=== PATIENT | female | born 1995 | race Caucasian/White ===

== ENCOUNTER 2023-11-26 05:42 | Emergency (ER) | payer BC, SELFPAY ==
[2023-11-26 06:31] VITALS: BP 109/75
[2023-11-26 06:42] LABS: % Basophils 0.8 % (0-2); % Eosinophils 2.9 % (0-6); % Immature Granulocytes 0.4 % (0-0.5); % Lymphocytes 20.6 % (20.5-51.1); % Monocytes 5.1 % (1.7-9.3); % Neutrophils 70.2 % (42.2-75.2); Absolute Basophils 0.1 10^3/uL (0-0.2); Absolute Eosinophils 0.2 10^3/uL (0-0.7); Absolute Lymphocytes 1.6 10^3/uL (1.2-3.4); Absolute Monocytes 0.4 10^3/uL (0.1-0.6); Absolute Neutrophils 5.6 10^3/uL (1.4-6.5); Hematocrit 36.6 % (37.0-47.0); Hemoglobin 12.7 g/dL (12.0-16.0); Mean Corp Hgb Conc. 34.7 g/dL (33.0-37.0); Mean Corpuscular Hgb 31.2 pg (27.0-31.0); Mean Corpuscular Volume 89.9 fL (81.0-99.0); Nucleated Red Blood Cells % 0 %; Platelet Count 224 10^3/uL (130-400); Red Blood Cell Count 4.07 10^6/uL (4.20-5.40)
--- NOTE | 2023-11-26 06:43 | ED.GENMED ---
History of Present Illness
General
Chief Complaint: Chest Pain
Source: patient
Exam Limitations: none
Time Seen by Provider: 11/26/23 06:07
Nursing documentation reviewed up to this point in time: agreed with
Travel History
Have you had any contact with someone who has COVID-19?: No
Do you have any symptoms of coronavirus? Fever > 100 degrees, chills, cough, shortness of breath, sore throat, loss of taste or smell, muscle aches, or headache?: No
History of Present Illness
History of Present Illness:
28-year-old female with no chronic medical history who is currently 21 weeks (G2, P0) who presents to the emergency department for evaluation of chest pain. Patient reports she had onset of symptoms around 4 AM while she was laying in bed.
She states she had some substernal dull chest pain that was relatively mild. She says it lasted for a few minutes and was not going away, she stood up and walked around for few minutes and symptoms resolved. She says she laid back down to go to
sleep and after short period of time pain came back and so she came to the emergency room to be checked out. She says pain has resolved at this point in time. She denies any associated shortness of breath. She says that she has had some mild
nausea throughout the but no vomiting or increased nausea this morning. She denies any recent cough, fevers, chills. She has not noticed any pain or swelling in her legs. She has no personal history of cardiac issues; she says that her
father had pericarditis when he was young but has not had any chronic heart issues and no other family history of heart issues.
Past History
Past History
ED Past Medical History: None
ED Past Surgical History: None
Social History
Tobacco: Non-smoker
Alcohol: None
Drug: None
Review of Systems
Review of Systems
All Other Systems: ROS reviewed and negative except as documented in HPI and ROS
Constitutional: Denies fever or chills
EENT: Denies sore throat or runny nose
Respiratory: Denies cough or trouble breathing
Cardiac: Reports chest pain; Denies diaphoresis, palpitations or syncope
ABD/GI: Reports nausea; Denies abdominal pain, vomiting or diarrhea
: Denies flank pain
Musculoskeletal: Denies neck pain or back pain
Neurological: Denies headache, weakness or numbness
Phy Exam
Physical Exam
Physical Exam:
General: Awake, alert, oriented x3; no acute distress
Head: Normocephalic, atraumatic
Eyes: Conjunctiva normal, sclera anicteric
Throat: Airway intact, handling secretions
Neck: Trachea midline, supple without meningismus
Lungs: Clear to auscultation bilaterally, no wheezing, rales, rhonchi
Heart: Regular rate and rhythm, no murmurs, gallops, or rubs; no chest wall tenderness
Abd: Soft, non distended, nontender
Neuro: Cranial nerves grossly intact, speech fluid
Skin: no rash
Extremities: No edema in extremities, equal pulses in all extremities
Scores
Heart Failure Risk
Heart Failure Risk Score: Not Applicable
Heart Score for Chest Pain Patients
STEMI patient?: No
History: Slightly or Non-Suspicious
ECG: Normal
Age: </= 45 years
Risk Factors: No Risk Factors
Troponin: </= Normal Limit
Heart Score for Chest Pain Patients: 0
Heart Score Risk: 2.5% MACE over next 6 weeks
Withdrawal Assessment of Alcohol
Withdrawal Assessment Completed?: Not applicable
Course
Orders/Labs/Results
Orders:
Orders
11/26/23 05:49
EKG [Electrocardiogram (*1)] Urgent
Reason for Study: Chest Pain
EKG- Treatment ONCE
11/26/23 06:32
Comprehensive Metabolic Panel Urgent
11/26/23 06:33
Complete Blood Count/With Diff Urgent
Troponin I Urgent
11/26/23 06:43
Vital Signs- Treatment ONCE
Frequency: Once
Abnormal Lab Results
11/26/23 11/26/23
06:32 06:33
RBC 4.07 L 10^6/uL
(4.20-5.40)
Hct 36.6 L %
(37.0-47.0)
MCH 31.2 H pg
(27.0-31.0)
Sodium 134 L mmol/L
(135-145)
Chloride 108 H mmol/L
(98-107)
Creatinine 0.5 L mg/dL
(0.6-1.0)
11/26/23 06:33
11/26/23 06:32
Vital Signs
Initial and Last Documented VS:
Initial Vital Signs
Pulse Resp Pulse Ox
87 13 100
11/26/23 06:25 11/26/23 06:25 11/26/23 06:25
Last Documented Vital Signs
Temp Pulse Resp BP Pulse Ox
37.2 C 76 22 100/62 100
11/26/23 07:34 11/26/23 07:00 11/26/23 07:00 11/26/23 07:00 11/26/23 07:00
MDM/Problems Addressed
Differential Diagnosis Includes:
Pericarditis, costochondritis, GERD; ACS, PE, aortic dissection or other emergent pathology considered much less likely based on clinical history and exam
MDM/Problems Addressed:
28-year-old female presents for evaluation of mild chest pain x 2 episodes this morning�first episode lasted for few minutes resolved with walking around second was a bit longer but has resolved by the time of arrival in the emergency room. Vital
signs here within normal limits, physical exam as above. EKG shows no STEMI or other concerning changes. GERD would be leading diagnosis is symptoms seem to improve with getting up from bed and or worse with lying down certainly would be common
during . Will check labs and a troponin in an abundance of caution although ACS is very low on differential based on full clinical picture. While certainly increases risk for PE. Clinical history of 2 brief episodes of pain
followed by resolution of symptoms, the fact that she has no accompanying shortness of breath and no vital sign abnormalities make my clinical suspicion much less low in my judgment no further workup indicated for this diagnosis at this point.
Similarly although always must consider pneumonia or pneumothorax clinical history and exam not consistent with these diagnoses and in my judgment risk of chest x-ray outweighs benefit in light of . Will forego chest x-ray for now. Will
monitor on telemetry will reassess after the above.
Labs reviewed: CBC unremarkable, CMP shows no clinically significant abnormalities. Troponin is negative. Patient remains well-appearing reassuring vitals chest pain-free. I think she is stable for discharge can follow-up with PCP and [facility] as
an outpatient�suspect this may be GERD. She can start with Tums as needed to start. She feels comfortable with this. Spoke about return precautions all questions answered.
*Pulse Oximetry
Patient hypoxic: no
*EKG
Interpreted by ED Provider?: Yes
Heart Rate: 86
Rate: normal
Rhythm: sinus
[place]: normal axis
Interval: normal interval
QRS Pattern: normal QRS
Ischemia: no ischemia
*Critical Care Note
Total Time (30-74mins, 75-104mins- exclusive of procedures): Not Applicable
Data Reviewed
Source: patient
Further Testing Considered But Not Given:
Considered chest x-ray as above; considered D-dimer as above
ED Attending Note
-
Portions of this chart may have been created with voice recognition software.� Occasional wrong word or��sound alike� substitutions may have occurred due to the inherent limitations of voice recognition software.
Discharge Plan
Departure
Patient Disposition: Home (Routine Discharge)
Date of Disposition: 11/26/23
Time of Disposition: 07:53
Patient with high blood pressure during this ER visit?: No
Discharge Problem:
Chest pain
Instructions: Acid Reflux and GERD in Adults (DC), Chest Pain PCP Follow Up
Referrals:
Jennifer Katz NP [Family Provider] - Call in 1-3 days for appt
Activity Restrictions/Additional Instructions:
Thank you for visiting the Emergency Department at [facility].
1. Please schedule a follow up appointment as directed. Call first thing tomorrow morning to make an appointment.
2. If indicated, please take your medications as instructed and indicated on discharge paperwork.
3. If any of your symptoms do not improve, or persist, or become more severe within 6-12 hours, please return to the emergency department for further care.
4. Please return to the emergency department if you develop a headache, neck pain/stiffness, fever greater than 100.4F, chest pain, shortness of breath, persistent nausea, vomiting, slurred speech, difficulty walking, numbness/tingling, weakness,
signs of infection or any other symptoms that are worrisome to you.
Please call [phone] if you have any questions.
Interventions
Interventions:
*Risk Screen - Suicide Last Done: 11/26/23 05:44
*General Assessment Last Done: 11/26/23 05:44
*Neglect/Abuse Screening Last Done: 11/26/23 05:44
ED- Fall Risk Assessment Last Done: 11/26/23 05:44
*ED COVID-19 Vaccine History Last Done: 11/26/23 05:44
ED- Cardiac Assessment Last Done: 11/26/23 06:20
[2023-11-26 06:53] LABS: ALT (SGPT) 15 U/L (0-35); AST (SGOT) 26 U/L (14-36); Albumin 3.5 g/dl (3.5-5.0); Alkaline Phosphatase 72 U/L (38-126); Blood Urea Nitrogen 9 mg/dl (7-17); Calcium 8.5 mg/dl (8.4-10.2); Carbon Dioxide 23 mmol/L (22-30); Chloride 108 mmol/L (98-107); Glucose 80 mg/dl (70-99); Potassium 3.8 mmol/L (3.5-5.1); Sodium 134 mmol/L (135-145); Total Bilirubin 0.4 mg/dl (0.2-1.3); Total Protein 6.4 g/dl (6.3-8.2); eGFR > 60.00
[2023-11-26 07:00] VITALS: BP 100/62
[2023-11-26 07:04] LABS: Troponin I < 0.012 ng/ml
== END 2023-11-26 08:00 | disposition home or self-care (01) ==
LOC: EMR 05:42
PROVIDERS: EMERGENCY PHYSICIAN Emergency Medicine; FAMILY PHYSICIAN Nurse Practitioner Family
DX: O99.891 Other specified diseases and conditions complicating pregnancy (principal); R07.89 Other chest pain; Z3A.21 21 weeks gestation of pregnancy
CPT/HCPCS: 99283; 80053; 84484; 85025; 93005

== ENCOUNTER 2024-01-24 20:49 | Observation (INO) | payer OTHER, BC, SELFPAY ==
[2024-01-24] VITALS (25 sets, daily range): BP systolic 100–131; BP diastolic 52–94; BMI 21.1
[2024-01-24 17:36] LABS: Glucose - Point of Care 74 mg/dl (70-99)
[2024-01-24] MEDS: NSS 500 IV (17:40)
--- NOTE | 2024-01-24 17:57 | ED.CVA ---
Addendum entered and electronically signed by Jerry Guillen MD 01/24/24 21:04:
EKG normal sinus rhythm at 90. Nonspecific anterior changes. [place] intervals within normal limits.
Original Note:
History of Present Illness
General
Chief Complaint: CVA/TIA Symptoms
Source: patient and ambulance crew
Exam Limitations: none
Time Seen by Provider: 01/24/24 17:34
Onset of Stroke Symptoms
Onset of symptoms known: Yes
Date of onset of symptoms: 01/24/24
Time of onset of symptoms: 17:30
Travel History
Have you had any contact with someone who has COVID-19?: No
Do you have any symptoms of coronavirus? Fever > 100 degrees, chills, cough, shortness of breath, sore throat, loss of taste or smell, muscle aches, or headache?: No
History of Present Illness
History of Present Illness:
28-year-old female , 29 weeks presents with sudden onset of trouble with speech, tingling to the right side of the face and arm followed by some blurry vision in the right eye. Symptoms have resolved except for very minimal blurry
vision. No unusual headache. No history of same. No issues with . Peaked and lasted a minutes.
Past History
Past History
ED Past Medical History: None
ED Past Surgical History: None
Social History
Tobacco: Non-smoker
Alcohol: None
Drug: None
Phy Exam
Physical Exam
Physical Exam:
GENERAL: Alert and oriented in no apparent distress
EYE: Orbits normal. Extraocular muscles intact
NECK: Supple, no carotid bruit
ENT: Pharynx without erythema
CARDIAC: Regular rate and rhythm without any obvious murmurs.
LUNGS: Clear breath sounds,normal
ABDOMEN: Soft, without focal tenderness or distention consistent with
NEUROLOGICAL: Alert and oriented , speech normal for me. Cranial nerves II through XII intact except for some questionable minimal visual loss right upper lateral quadrantanopsia. No drift. [id number] normal. Light touch intact.
SKIN: Warm and dry, no rash or lesion, no discoloration, skin intact.
MUSCULOSKELETAL: No edema,no deformity.Good color
PSYCH: Normal and appropriate interaction.
Course
Orders/Labs/Results
Orders:
Orders
01/24/24 17:34
Electrocardiogram (*1) Stat
Reason for Study: Other
Other Reason for Exam: neuro symptoms
Cardiac Monitoring- Treatment ONCE
EKG- Treatment ONCE
IV Insert/Care/Rem.- Treatment PRN
0.9% Sodium Chloride 500 ml [Nss] 500 ml IV BOLUS
Pulse Ox/cont/shift [RESP] Stat
Quantity: 1
01/24/24 17:38
Complete Blood Count/With Diff Urgent
Comprehensive Metabolic Panel Urgent
01/24/24 17:43
CT Head W/o Cont STROKE ALERT Urgent
Comment:
Reason For Exam: Transient expressive aphasia/right-sided paresthes
CT Head/Neck Ang STROKE ALERT Urgent
Comment:
Reason For Exam: Transient expressive aphasia/right-sided paresthes
01/24/24 18:19
Urinalysis Urgent
Date Specimen was Collected: 01/24/24
Time Specimen was Collected: 18:16
01/24/24 19:21
Aspirin Chewable [Low Strength Aspirin] 81 mg PO NOW STA
01/24/24 19:33
Add On- LAB Routine
Tests Added?: Troponin
01/24/24 19:41
Troponin I Urgent
Comment: COLLECT. NO GREEN TOP IN LAB
Abnormal Lab Results
01/24/24
17:38
WBC 11.2 H 10^3/uL
(4.8-10.8)
RBC 4.10 L 10^6/uL
(4.20-5.40)
MPV 10.9 H fL
(7.4-10.4)
Abs Immat Gran (auto) 0.1 H 10^3/uL
(0-0.05)
Absolute Neuts (auto) 7.0 H 10^3/uL
(1.4-6.5)
Absolute Monos (auto) 0.9 H 10^3/uL
(0.1-0.6)
Sodium 132 L mmol/L
(135-145)
Creatinine 0.5 L mg/dL
(0.6-1.0)
01/24/24 17:38
01/24/24 17:45
Vital Signs
Initial and Last Documented VS:
Initial Vital Signs
Temp Pulse Resp BP Pulse Ox
98.9 F 84 18 122/90 99
01/24/24 17:35 01/24/24 17:35 01/24/24 17:35 01/24/24 17:35 01/24/24 17:35
Last Documented Vital Signs
Temp Pulse Resp BP Pulse Ox
98.9 F 86 10 117/72 98
01/24/24 17:35 01/24/24 19:00 01/24/24 19:00 01/24/24 19:00 01/24/24 19:00
MDM/Problems Addressed
Differential Diagnosis Includes:
Immediately discussed with neurology. Followed by [facility]. Workup in progress. CT angio CT head. Radiation discussed with patient although necessary for diagnostic reasons at this time. also updated.
*Radiology
Radiology exam reviewed: radiology read reviewed (neg)
*Pulse Oximetry
Patient hypoxic: no
*Critical Care Note
Total Time (30-74mins, 75-104mins- exclusive of procedures): 35
Update Note
Update Note:
Patient is currently asymptomatic. Multiple discussions with neurology and [facility]. Okay for baby aspirin. Admission to medicine for the L&D floor.
ED Attending Note
-
Portions of this chart may have been created with voice recognition software.� Occasional wrong word or��sound alike� substitutions may have occurred due to the inherent limitations of voice recognition software.
Discharge Plan
Departure
Patient Disposition: Admit
Date of Disposition: 01/24/24
Time of Disposition: 19:24
Presentation/result/management discussed w/ accepting MD/DO: neuro/ob
Discharge Problem:
Sudden expressive aphasia/paresthesias,
Referrals:
Jennifer Katz NP [Family Provider] -
Interventions
Interventions:
*Risk Screen - Suicide Last Done: 01/24/24 17:41
*General Assessment Last Done: 01/24/24 17:41
*Neglect/Abuse Screening Last Done: 01/24/24 17:41
ED- Fall Risk Assessment Last Done: 01/24/24 17:36
*ED COVID-19 Vaccine History Last Done: 01/24/24 17:37
ED- Pulmonary Assessment Last Done: 01/24/24 17:42
ED- Neurological Assessment Last Done: 01/24/24 17:43
ED- Cardiac Assessment Last Done: 01/24/24 17:41
Discharge Date and Time
Print Language: KINYARWANDA
[2024-01-24 18:14] LABS: % Basophils 0.8 % (0-2); % Eosinophils 2.9 % (0-6); % Immature Granulocytes 0.5 % (0-0.5); % Lymphocytes 25.6 % (20.5-51.1); % Monocytes 8.2 % (1.7-9.3); Absolute Basophils 0.1 10^3/uL (0-0.2); Absolute Eosinophils 0.3 10^3/uL (0-0.7); Absolute Immature Granulocytes 0.1 10^3/uL (0-0.05); Absolute Lymphocytes 2.9 10^3/uL (1.2-3.4); Absolute Monocytes 0.9 10^3/uL (0.1-0.6); Hematocrit 37.5 % (37.0-47.0); Hemoglobin 12.7 g/dL (12.0-16.0); Mean Corp Hgb Conc. 33.9 g/dL (33.0-37.0); Mean Corpuscular Volume 91.5 fL (81.0-99.0); Mean Platelet Volume 10.9 fL (7.4-10.4); Nucleated Red Blood Cells % 0 %; Platelet Count 214 10^3/uL (130-400); Red Cell Dist. Width 11.9 % (11.5-14.5); White Blood Cell Count 11.2 10^3/uL (4.8-10.8)
[2024-01-24 18:25] LABS: ALT (SGPT) < 10 U/L (0-35); AST (SGOT) 21 U/L (14-36); Albumin 3.9 g/dl (3.5-5.0); Alkaline Phosphatase 114 U/L (38-126); Blood Urea Nitrogen 10 mg/dl (7-17); Calcium 9.6 mg/dl (8.4-10.2); Carbon Dioxide 25 mmol/L (22-30); Chloride 101 mmol/L (98-107); Estimated Creatinine Clearance > 125 ml/min; Glucose 77 mg/dl (70-99); Potassium 3.6 mmol/L (3.5-5.1); Sodium 132 mmol/L (135-145); Total Bilirubin 0.5 mg/dl (0.2-1.3); eGFR > 60.00
[2024-01-24 18:33] LABS: Urine Albumin Negative (Neg - Trace); Urine Bilirubin Negative (Negative); Urine Character Clear (Clear); Urine Color Straw; Urine Glucose Negative (Negative); Urine Ketone Negative (Negative); Urine Leukocyte Negative (Negative); Urine Nitrite Negative (Negative); Urine Occult Blood Negative (Negative); Urine Urobilinogen Negative (Neg - 1+)
[2024-01-24] MEDS: LOW STRENGTH ASPIRIN 81 MG PO (19:54)
--- NOTE | 2024-01-24 19:54 | HPS.HSE ---
Family Physician
-
Family Physician: Jennifer Katz NP
Chief Complaint
-
Speech disturbance on the right face and tingling/numbness.
History of Present Illness
29 weeks G2 p.o. presents with above complaints.
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 It was at 5:30 PM.
she said that she knew the words but that they were not coming out. She sat down it lasted for 3 to 4 minutes. That resolved and never recurred. They checked the vital signs in the unit there and they were okay. She went back to ambulance .
And she went to use the bathroom then she had initially tingling numbness in the right medial 3 fingers and then the right upper lip was also tingly and numb. The hand symptoms progressed to the other fingers and went up to the elbow. The right
upper lip sensory symptoms started to migrate to the right side of her face.
The symptoms lasted 5 to 10 minutes. Never came back. No involvement of right leg with the symptoms. No limb weakness.
She had a headache which she still has it across the frontal area. She had eye blurring. The eye symptoms lasted for 10 to 15 minutes. No double vision.
She has a history of migraine headache the last episode was 3 months ago with eye blurring. Never had neurological symptoms. And prior to that migraine headache she had 1 many years ago.
No head trauma.
So far no complications with the .
She is otherwise healthy.
Non-smoker. No hypertension, diabetes or family history of strokes. No family history of early cardiac disease.
Medical History
Past Medical History
Past Medical History: Reports None
Past Surgical History: Reports None
Social History
Tobacco: Non-smoker
Alcohol: None
Personal:
Living: With Family
Family History
Family History: Not pertinent
Allergies / Home Medications
Allergies reflects when Allergies were last updated in [facility].
Home Medications with original date entered in [facility]
Allergy/Medication List:
Allergies
Allergy/AdvReac Type Severity Reaction Status Date / Time
No Known Allergies Allergy Verified 11/26/23 05:44
Home Medications
Pre-Marty Advance Multivitamin 2 tab PO DAILY 01/24/24
acetaminophen 500 mg tablet (Tylenol Extra Strength) 500 mg PO DAILYPRN PRN mild pain 01/24/24
clindamycin 1.2 %-benzoyl peroxide 2.5 % topical gel with pump 1 applic topical HS face 01/24/24
fluoride (sodium) 1.1 % dental paste 1 applic dental HS 01/24/24
Review of Systems
-
A 12 point ROS was completed and negative except as noted: Yes
Physical Exam
Vital Signs
Vital Signs
Temp Pulse Resp BP Pulse Ox
98.9 F 86 10 117/72 98
01/24/24 17:35 01/24/24 19:00 01/24/24 19:00 01/24/24 19:00 01/24/24 19:00
Physical Exam
General: Comfortable
HEENT: Moist mucous membranes
Respiratory: Clear
Cardiac: S1/S2 and Regular Rhythm
GI: Soft, Non Tender, Normal Bowel Sounds and Distended (gravid uterus)
Neuro: AO x 3, No Motor Deficits and Other (DESIER); No Slurred Speech or Facial Droop
Psych: Calm; No Confused
Laboratory Results
-
01/24/24 17:38
01/24/24 17:45
Laboratory Results
Total Bilirubin Cancelled 01/24/24 17:45
AST Cancelled 01/24/24 17:45
ALT Cancelled 01/24/24 17:45
Alkaline Phosphatase Cancelled 01/24/24 17:45
Data Reviewed
-
CT Scan: Report Reviewed by me (CT angiogram of head and neck, CT head)
Lab Data: Labs Reviewed by me
Impression/Plan
-
acute onset of expressive aphasia, right arm and right face tingling numbness , eye blurriness with headache - all symptoms resolved except for frontal headache. Clinical concern for TIA versus complicated migraine. Patient is 29 weeks .
No history of hypertension or elevated blood pressure noted. Uncomplicated So far. LFTs normal. Platelets normal. UA today shows no albuminuria. Doubt preeclampsia.
Admit to hospital for further evaluation and treatment.
CT head and CT angiogram head and neck is negative. Aspirin started per neurology recommendation. Check MRI of the brain. Follow on telemetry.
Follow blood pressure closely.
Consult neurology and OB.
Abnormal EKG-T wave inversion in anterior leads noted. Not noted to have cardiac disease. Asymptomatic without chest pain. check troponins. Repeat EKG if persistent consider cardiology eval.
[2024-01-24 20:33] LABS: Troponin I < 0.012 ng/ml
[2024-01-25] VITALS (8 sets, daily range): BP systolic 104–126; BP diastolic 56–83
--- NOTE | 2024-01-25 08:00 | CON.MD ---
Consultation - Medical
-
Full consult dictated last night
NST early this AM was reactive
Patient without complaints this AM, no headache, visual change or abdominal pain. Feels good movement
VS: BP 115/74
Abdomen-gravid and nontender
Extremities-no calf pain
Assessment/Plan-IUP at 29 weeks-stable, complete Neurology and cardiology evaluation. Advised patient to contact her OB and arrange appointment for follow up later this week
[2024-01-25] MEDS: ASPIR LOW (ENTERIC COATED) 81 MG PO (08:06)
--- NOTE | 2024-01-25 08:18 | EDRN ---
the pt is requesting breakfast however there is no diet order.the pts attending provider Dr Derick Wheeler was notified of above via [employer].
--- NOTE | 2024-01-25 08:48 | EDRN ---
the pts MRI has been cancelled. Neurology Dr Cleveland is present at bedside speaking with this pt.
--- NOTE | 2024-01-25 08:49 | CON.NEURO4 ---
Addendum entered and electronically signed by Gilberto Cleveland MD 01/25/24 15:24:
Studies reviewed.
I have personally examined the patient. I reviewed and agree with the KELLY MACHINE OPERATOR's Note.
My addenda:
Awake, alert, interactive. No acute distress.
Speech intact.
Follows 2-step requests w/o difficulty. No tremor.
Extra-ocular movements grossly intact.
Facial movements full and symmetric. Hearing intact to normal conversational volume.
Normal UE movements bilaterally.
Neck: full ROM.
Chest: no dyspnea
Heart: no JVD
Ext: (-) Clubbing, (-) Cyanosis, (-) Edema
IMPRESSIONS/RECOMMENDATIONS:
Abrupt onset of facial sensation, aphasia, and right arm sensation changes associated with mild headache in a patient with prior episodes of visual change with headache.
Despite current , the most likely diagnosis is migraine with aura, not stroke
Provide as needed rizatriptan 10 mg melt tab if recurrent headache
No clear indication patient will benefit from MRI of brain at this time unless recurrent headaches and/or additional symptoms take place
D/W patient
Will continue to follow patient.
Original Note:
Documented by User: Dora Chaney NP 01/25/24 10:25
Consultation - Neurology 4
-
CONSULTING PHYSICIAN: Gilberto Cleveland MD
REFERRING PHYSICIAN: Hospitalists/Dr. Palacios
DICTATED BY: MONICA Felipe
DATE/TIME OF REQUEST: 01/24/24
DATE/TIME OF CONSULTATION: 01/25/24
Reason for Consultation: Migraine vs CVA
History of Present Illness:
This is a 28-year-old right-handed 29 weeks female who has presented to the hospital on 01/24/24 with report of expressive aphasia, right-sided paresthesias, and headache. Patient works as an EMT. She reports feeling her usual self yesterday
(01/24/24) when she went to work and throughout her shift until 1800. At 1800 after transporting a patient into ER, she went to speak to registration staff and had sudden onset speech difficulty. She reports knowing what she wanted to say but the
words wouldn't come out, only sounds and inappropriate words were coming out. She denies any difficulty understanding what others were saying to her. She went to sit down and drink some water. After 3-4 minutes she reports that her speech improved
to 90% but she still felt like she was stumbling over some words. Moments later she developed a tingling sensation in her right upper lip that moved up her face to her right eye. Then the sensation started in her right hand 1st three fingers, and
then spread to her 4th and 5th fingers and up her arm to her right elbow. This resolved completely in about 10-15 minutes but then she developed a mild left frontal headache with associated blurry vision. This resolved in about one hour, she rates
the headache a 3/10. CT head, CTA head/neck was obtained in the ER and are negative for any acute abnormalities. On evaluation in the ER her symptoms had resolved and NIHSS was 0. She was not a candidate for TNK/IAT due to resolution of symptoms.
Currently, patient reports feeling 100% at her baseline. She denies any headache, dizziness, vision changes, speech/swallow difficulty, numbness, weakness, chest pain, palpitations, and shortness of breath. She is tachycardic on cardiac monitoring
during this evaluation, hr 110-120. Patient reports she has been intermittently tachycardiac at home during this but denies any arrhythmias. She endorses a history of migraine headaches associated with blurry vision starting at age 20. Her
last migraine was 3 months ago. Prior to that, she reports having a migraine every 6-12 months. She denies photo/phonophobia, nausea/vomiting with her headaches. She has not been evaluated by a Neurologist or ever taken any migraine specific
medications. She was taking hormonal control prior to becoming . She had one prior miscarriage at 8 weeks gestation in 2022. She denies any history of DVT, PE, or stroke. Her paternal grandfather had migraine headaches and had a stroke
in an older decade of life. She denies any family history of clotting disorders, DVT/PE, early stroke, or early cardiac events. She denies any hypertension or other complications with her current .
Past Medical History: Miscarriage 8 weeks, migraines,
Surgical History: Denies
Family History: Paternal grandfather- migraines, CVA in older decade of life.
Social History: Denies tobacco, alcohol, and illicit drug use.
Allergies: No known allergies.
Home Medications: See below.
Review of Symptoms:
Patient denies any fever, headache, chest pain, shortness of breath, GI or symptoms.
�Per the HPI.�All systems are reviewed negative except above.
Physical Exam:
The patient is afebrile, abdomen is round, breathing is unlabored, skin is warm and dry, no edema.
NIH Stroke Scale:
I performed the NIH stroke scale on the patient on 01/25/24 at 0900. The patient scored 0 points on the NIH stroke scale assessment, which were assigned as follows: See below.
Neurologic Examination:
The patient is awake, alert and oriented x 3. She is able to follow commands and answer questions appropriately. There is no aphasia or dysarthria. On cranial nerve assessment, pupils are 3 mm bilateral, round and reactive to light and
accommodation. Visual mcqueen are full. Extraocular movements are intact. Facial sensations are intact and bilaterally symmetrical, there is no facial asymmetry. Hearing is intact bilaterally to normal conversation volume. Tongue palate and uvula are
midline. Sternocleidomastoid strengths are full bilaterally. Motor strengths are 5/5 bilateral upper and lower extremities on medical research [place] scale. There is no drift or involuntary movement noted. Deep tendon reflexes are 2+ bilateral
upper and lower extremities and Babinski is absent bilaterally. Sensations of pain, touch, temperature and vibration are intact and bilaterally symmetrical. There was no extinction noted on double simultaneous stimulation. Coordination is intact by
finger to nose bilaterally.
Lab Results: See below.
Neuro Imaging:
1. CT head 01/24/24: No evidence of acute intracranial abnormality. ASPECTS score: 10.
2. CTA head/neck 01/24/24: Normal appearance of the common carotid arteries, carotid bulbs, and internal carotid arteries bilaterally. No evidence for intracranial stenosis or large vessel occlusion. No significant narrowing involving the vertebral or
basilar arteries. Short segment fenestration of the proximal basilar artery, which is considered normal variation.
Differentials for the patient's presentation include:
1. Migraine with aura likely producing transient expressive aphasia, paresthesias, and headache.
2. Very low concern for structural brain abnormality producing symptoms.
3. CTA head/neck negative for vascular abnormality.
Patient has the following risk factors for their symptoms: Hx migraines, family hx migraines
IV Tenecteplase/IAT candidacy: She was not a candidate for TNK/IAT due to resolution of symptoms.
Recommendations:
-Provide a script for Rizatriptan 10mg PRN migraine.
-Discussed s/s of stroke and when to return to the ER for evaluation.
-Provide patient with a stroke education packet.
-Do not see a role for further neurological imaging at this point, but will need to obtain eventual MRI brain noncontrast as an outpatient to establish baseline.
-Patient should avoid use of hormonal control in the future as this is associated with a small increase in risk of stroke in patients with migraine with aura.
-Patient should follow-up with Neurology as an outpatient in about 4 weeks, may see the KELLY MACHINE OPERATOR or one of the physicians.
Discussed patient care with: Dr. Cleveland, the patient
Vital Signs and Labs
-
Vital Signs and Labs:
Vital Signs
Temp Pulse Resp BP Pulse Ox
98.9 F 84 18 115/74 99
01/24/24 17:35 01/25/24 08:05 01/25/24 08:05 01/25/24 08:05 01/25/24 08:05
Lab Results
01/24/24 17:38
01/24/24 17:45
Sodium Cancelled 01/24/24 17:45
Potassium Cancelled 01/24/24 17:45
BUN Cancelled 01/24/24 17:45
Glucose Cancelled 01/24/24 17:45
Calcium Cancelled 01/24/24 17:45
Medications
-
Active Medications
Generic Name Dose Route Start Last Admin
Trade Name Freq PRN Reason Stop Dose Admin
Aspirin 81 mg 01/25/24 08:00 01/25/24 08:06
Aspirin 81 Mg (Enteric Coated) Tablet PO 02/22/24 07:59 81 mg
DAILY FINN Administration
Sodium Chloride 0 flush 01/24/24 23:00
Sodium Chloride 0.9% (Flush) Syringe IV 02/21/24 22:59
PER PROTOCOL FINN
Home Medications
�Medication �Instructions �Recorded
Pre-Marty Advance Multivitamin 2 tab PO DAILY Supplement 01/24/24
acetaminophen 500 mg tablet 500 mg PO DAILYPRN PRN mild pain 01/24/24
(Tylenol Extra Strength)
clindamycin 1.2 %-benzoyl peroxide 1 applic topical HS face 01/24/24
2.5 % topical gel with pump
fluoride (sodium) 1.1 % dental 1 applic dental HS Supplement 01/24/24
paste
NIH Stroke Score
Subsequent NIH Scale
Date of Subsequent NIH Scale: 01/25/24
Time of Subsequent NIH Scale: 09:00
NIH Stroke Score
Level of Consciousness: 0 - Alert
LOC Questions: 0-Answers both correctly
LOC Commands: 0-Performs both correctly
Best Horizontal Gaze: 0-Normal
Visual Mcqueen: 0=Normal, no visual loss
Facial Palsy: 0=Normal, symmetrical
Motor - Right Arm: 0=No drift 10 seconds
Motor - Left Arm: 0=No drift 10 seconds
Motor - Right Le-No drift 5 seconds
Motor - Left Le-No drift 5 seconds
Limb Ataxia: 0-Absent
Sensation: 0-Normal
Best Language: 0-No aphasia
Dysarthria: 0-Normal
Extinction and Inattention: 0-No abnormality
Total Score:: 0

Documented by User: Gilberto Cleveland MD 01/25/24 15:20
NIH Stroke Score
NIH Stroke Score
Total Score:: 0
--- NOTE | 2024-01-25 09:31 | EDRN ---
the pt is again asking for food and drink. still no diet order in for this pt. this PRESIDENT & FOUNDER reached out to the attending provider DR Derick Wheeler again via [employer]. Dr Derick Wheeler told this PRESIDENT & FOUNDER to reach out to the covering resident.
--- NOTE | 2024-01-25 10:39 | W.PN.HOSP.TC ---
Addendum entered and electronically signed by Derick Wheeler MD 01/26/24 01:09:
Attending Addendum-
I saw and evaluated the patient. I reviewed the resident�s note and agree with findings and plan as documented in the resident�s note. No further headache, no neuro complaints. Full 12 point ROS reviewed and negative except as documented Exam: HEart
RRR lungs clear abd osft LE no ed edmea Neuro AAO x 3 MS 5/5 PERRLA CN 2-12 intact sensation intact
Plan:
# Complex Migraine-
-head CT and CTA neg
-highly doubt CVA vs TIA not preeclamptic
-no need for MRI per neuro
-DC home with rizatriptan
#
- 29 weeks
- appreciate OB input
- f/u OB s OP
- not preeclampsic
Dispo DC home with close f/u
Time spent coordinating care, review of plan of care with resident, review of records, med rec, consults, notes, labs, rads, d/w nursing neuro � 36 mins
Original Note:
Today's Communication/Plan
-
Rizatriptan 10 mg oral at discharge. Plan discharge.
Assessment / Plan
Assessment / Plan
Assessment-
28-year-old female presents to the hospital with acute onset expressive aphasia, paresthesias and headaches. Episode self resolved within 15 minutes.
Plan-
Expressive aphasia and paresthesia
In the setting of headaches, include possible differentials of TIA, migraine with aura, preeclampsia, antiphospholipid antibody syndrome.
Uncomplicated , obstetrics consulted, no history of gestational hypertension, liver function test within normal, urine analysis within normal. nonstress test reactive.
No history of clotting disorders in family.
CT angiogram 01/24/2024-
Normal appearance of the common carotid arteries, carotid bulbs, and internal carotid arteries bilaterally.
No evidence for intracranial stenosis or large vessel occlusion.
No significant narrowing involving the vertebral or basilar arteries. Short segment fenestration of the proximal basilar artery, which is considered normal variation.
Head CT 01/24/2024-no acute intracranial abnormality noted.
Neurology consulted, based on neurology input-no further evaluation needed.
Patient had history of migraines that was never diagnosed formally, but had similar episodes about an year ago that self resolved.
Warrant further evaluation if symptoms persist or does not go away with migraine rescue medication. Starting the patient on rizatriptan 10 mg oral.
Leukocytosis
WBC at 11.2, neutrophilia and monocytosis.
Unclear etiology.
Anticipated Discharge: Today
Subjective/Interval History
-
Date of Service: January 25, 2024
28-year-old female, primary 29 weeks gestation, presents with symptoms of right upper limb and face paresthesias, aphasia, headache.
Reports no symptoms today. Denies weakness, fatigue, nausea, headaches, paresthesias, word finding difficulty, change in bowel or bladder movements, blurring of vision.
Objective Data
-
Vital Signs:
Vital Signs
Temp Pulse Resp BP Pulse Ox
98.9 F 90 16 115/74 100
01/24/24 17:35 01/25/24 10:30 01/25/24 10:30 01/25/24 08:05 01/25/24 08:05
Review of Systems
-
History Source: Patient
All other systems: Reviewed and negative
Constitutional: Reports No Symptoms
Physical Exam
-
General: Well Developed and Well Nourished
HEENT: Normocephalic and Atraumatic
Respiratory: Clear to Auscultation (No wheezes rales rhonchi.)
Cardiac: Regular Rhythm, S1/S2 and Other (No murmurs rubs gallops.)
GI: Soft, Nontender, Nondistended and Normal Bowel Sounds
Musculoskeletal: No Edema
Neuro: AO x 3 and Other (Intact strength and tone, bilateral touch sensation intact.)
--- NOTE | 2024-01-25 13:37 | W.DCSUMMARY ---
Addendum entered and electronically signed by Derick Wheeler MD 01/26/24 01:09:
Attending Addendum:
Read reviewed and agree. See same day progress note for additional details.
Loi Wheeler MD
Original Note:
Documented by User: Ciara Mcbride MD, Resident 01/25/24 17:30
Discharge Summary
Discharge Data
Date of Admission: 01/24/24
Date of Discharge: 01/25/24
-
Pending Results: No
Hospital Course
28-year-old female presents to the hospital with acute onset expressive aphasia, paresthesias and headaches. Episode self resolved within 15 minutes. Similar episode in the past, and H/o Migranes with no formal diagnosis.
Hospital course -
During the hospital course patient is evaluated for expressive aphasia, paresthesia and headaches.
In the setting of headaches, include possible differentials of TIA, migraine with aura, preeclampsia, antiphospholipid antibody syndrome.
Uncomplicated , obstetrics consulted, no history of gestational hypertension, liver function test within normal, urine analysis within normal. nonstress test reactive.
No history of clotting disorders in family.
CT angiogram 01/24/2024-
Normal appearance of the common carotid arteries, carotid bulbs, and internal carotid arteries bilaterally.
No evidence for intracranial stenosis or large vessel occlusion.
No significant narrowing involving the vertebral or basilar arteries. Short segment fenestration of the proximal basilar artery, which is considered normal variation.
Head CT 01/24/2024-no acute intracranial abnormality noted.
Neurology consulted, based on neurology input-no further evaluation needed. Patient was diagnosed with migraines with aura and prescribed a rescue medication of rizatriptan 10 mg oral. Advised her to follow-up with her OB and primary care.
In case patient's symptoms persist, or does not resolve after taking the medication twice in 2 hours, and episodes increase in frequency, patient is advised to return to the ER.
Discharge Plan
-
Patient Disposition: Home (Routine Discharge)
Discharge Diagnosis/Procedures: Migrane with Aura
Condition: Good
Diet: No restrictions
Activity: No restrictions
Driving Restrictions: As prior to admission
Bathing Restrictions: None
Referrals:
Jennifer Katz NP [Family Provider] -
Prescriptions:
New
rizatriptan 10 mg tablet
10 mg PO ONCE MDD 30mg Qty: 30 0RF
Rx Instructions:
take 1 tablet PO, can take another one after 2hrs
Continued
acetaminophen [Tylenol Extra Strength] 500 mg Tablet
500 mg PO DAILYPRN PRN (Reason: mild pain)
fluoride (sodium) 1.1 % Paste
1 applic DENTAL HS
clindamycin-benzoyl peroxide 1.2-2.5 % gel with pump
1 applic TOPICAL HS
Pre- Advance Multivitamin
2 tab PO DAILY
Discharge Orders:
Discharge Patient (As Directed); Ordered 01/25/24
Ordered By: Ciara Mcbride
Discharge Date and Time
Discharge Date/Time: 01/25/24 14:15
Print Language: JAPANESE

Documented by User: Derick Wheeler MD 01/26/24 01:01
Discharge Summary
Discharge Data
Date of Admission: 01/24/24
Date of Discharge: 01/26/24
Discharge Plan
-
Patient Disposition: Home (Routine Discharge)
Discharge Diagnosis/Procedures: Migrane with Aura
Condition: Good
Diet: No restrictions
Activity: No restrictions
Driving Restrictions: As prior to admission
Bathing Restrictions: None
Referrals:
Jennifer Katz NP [Family Provider] -
Prescriptions:
New
rizatriptan 10 mg tablet
10 mg PO ONCE MDD 30mg Qty: 30 0RF
Rx Instructions:
take 1 tablet PO, can take another one after 2hrs
Continued
acetaminophen [Tylenol Extra Strength] 500 mg Tablet
500 mg PO DAILYPRN PRN (Reason: mild pain)
fluoride (sodium) 1.1 % Paste
1 applic DENTAL HS
clindamycin-benzoyl peroxide 1.2-2.5 % gel with pump
1 applic TOPICAL HS
Pre- Advance Multivitamin
2 tab PO DAILY
Discharge Orders:
Discharge Patient (As Directed); Ordered 01/25/24
Ordered By: Ciara Mcbride
Discharge Date and Time
Discharge Date/Time: 01/25/24 14:15
Print Language: JAPANESE
== END 2024-01-25 14:15 | disposition home or self-care (01) ==
LOC: ED 20:49
PROVIDERS: Student in an Organized Health Care Education/Training Program; ADMITTING PHYSICIAN Internal Medicine; ATTENDING PHYSICIAN Family Medicine; CONSULT PHYSICIAN Obstetrics & Gynecology; EMERGENCY PHYSICIAN Emergency Medicine; FAMILY PHYSICIAN Nurse Practitioner Family; OTHER PHYSICIAN Psychiatry & Neurology Neurology
DX: G43.109 Migraine with aura, not intractable, without status migrainosus (principal); H53.8 Other visual disturbances; R47.89 Other speech disturbances; R20.2 Paresthesia of skin; R29.818 Other symptoms and signs involving the nervous system; R47.01 Aphasia; D72.821 Monocytosis (symptomatic); O99.353 Diseases of the nervous system complicating pregnancy, third trimester; Z3A.29 29 weeks gestation of pregnancy; R20.0 Anesthesia of skin; R94.31 Abnormal electrocardiogram [ECG] [EKG]; Z82.3 Family history of stroke
CPT/HCPCS: 59025; 70450; 70496; 70498; 80053; 81003; 82962; 84484; 85025; 93005; 96360; 99291; G0378; Q9967